=== PATIENT | male | born 1990 | race Caucasian/White ===

== ENCOUNTER 2021-02-20 22:03 | Emergency (ER) | payer MEDICAID ==
[~2021-02-20] VITALS: Ht 167.6 cm; Wt 85.0 kg
[2021-02-20 22:45] VITALS: BP 151/109
[2021-02-21] MEDS ORDERED: CYCL-1 PO (00:24)
[2021-02-21] MEDS ORDERED: NICO-630 TOP (00:24)
[2021-02-21] MEDS ORDERED: cyclobenzaprine 10mg tablet PO ONE (00:25)
[2021-02-21] MEDS ORDERED: nicotine 14mg patch - 24hr TD ONE (00:25)
== END 2021-02-21 00:53 | disposition home or self-care (01) ==
LOC: ER 22:06
DX: G47.00 Insomnia, unspecified (principal); F17.200 Nicotine dependence, unspecified, uncomplicated; F15.10 Other stimulant abuse, uncomplicated
CPT/HCPCS: 99282

== ENCOUNTER 2021-02-21 21:00 | Emergency (ER) | payer MEDICAID ==
[~2021-02-21 21:00] MED LIST: CYCL-1 PO; NICO-630 TOP
--- NOTE | 2021-02-21 21:49 | NUR ---
PT FOUND SLEEPING IN LOBBY, PT HAS NO PHYSICAL COMPLAINTS JUST STATES HE HAS NOWHERE TO GO. PT OFFERED TRANSPORTATION TO [facility], HE ACCEPTED. PT DESIRES TO NOT CHECK IN FOR CARE AT THIS TIME.
== END 2021-02-21 21:51 | disposition left against medical advice (07) ==
LOC: ER 21:01
DX: Z00.8 Encounter for other general examination (principal); Z53.21 Procedure and treatment not carried out due to patient leaving prior to being seen by health care provider

== ENCOUNTER 2021-02-23 08:43 | Emergency (ER) | payer MEDICAID ==
[~2021-02-23] VITALS: Ht 170.2 cm; Wt 75.9 kg
[2021-02-23 09:07] VITALS: BP 156/82
[2021-02-23 09:07] LABS: BASOPHILS # (AUTO) 0.1 X10'3 (0-0.2); BASOPHILS % (AUTO) 0.7 % (0-1); EOSINOPHILS # (AUTO) 0.1 X10'3 (0-0.9); EOSINOPHILS % (AUTO) 1.2 % (0-6); HEMATOCRIT 45.2 % (42.0-52.0); HEMOGLOBIN 15.7 g/dl (14.0-17.9); LYMPHOCYTES # (AUTO) 1.4 X10'3 (1.1-4.8); MEAN CORPUSCULAR HEMOGLOBIN 30.9 PG (27.0-31.0); MEAN CORPUSCULAR HGB CONC 34.6 g/dL (33.0-36.5); MEAN CORPUSCULAR VOLUME 89.3 FL (78-98); MEAN PLATELET VOLUME 8.4 FL (7.4-10.4); MONOCYTES # (AUTO) 0.7 X10'3 (0-0.9); MONOCYTES % (AUTO) 9.3 % (2-12); NEUTROPHILS # (AUTO) 5.7 X10'3 (1.8-7.7); NEUTROPHILS % (AUTO) 71.8 % (42-75); PLATELET COUNT 264 X10'3 (140-440); RED BLOOD COUNT 5.06 X10'6 (4.70-6.10)
[2021-02-23 09:42] LABS: ALANINE AMINOTRANSFERASE 61 U/L (12-78); ALBUMIN 3.7 G/DL (3.4-5.0); ALBUMIN/GLOBULIN RATIO 1.1 (1.1-1.5); ALKALINE PHOSPHATASE 79 IU/L (46-116); ANION GAP 11 (8-16); ASPARTATE AMINO TRANSFERASE 25 U/L (10-37); BILIRUBIN,TOTAL 0.8 MG/DL (0.1-1.0); BLOOD UREA NITROGEN 19 MG/DL (7-18); BUN/CREATININE RATIO 17.1 (5.4-32.0); CALCIUM 8.2 MG/DL (8.5-10.1); CHLORIDE 105 MMOL/L (99-107); CREATININE 1.11 MG/DL (0.60-1.10); GLUCOSE 105 MG/DL (70-104); POTASSIUM 4.4 MMOL/L (3.5-5.1); SODIUM 142 MMOL/L (135-145); TOTAL CARBON DIOXIDE 26.5 MMOL/L (24-32); TOTAL PROTEIN 7.2 G/DL (6.4-8.2); eGFR 79 ML/MIN
[2021-02-23 09:52] LABS: ETHANOL < 0.010 GM/DL (0.0-0.010)
[2021-02-23] MEDS ORDERED: NO HOME MEDS (19:26)
== END 2021-02-23 13:49 | disposition left against medical advice (07) ==
LOC: ER 08:44
DX: R44.0 Auditory hallucinations (principal); Z53.21 Procedure and treatment not carried out due to patient leaving prior to being seen by health care provider
CPT/HCPCS: 36415; 80053; 80320; 84443; 85025

== ENCOUNTER 2021-02-23 14:18 | Emergency (ER) | payer MEDICAID ==
[~2021-02-23] VITALS: Ht 167.6 cm; Wt 80.9 kg
[2021-02-23 16:32] LABS: BASOPHILS % (AUTO) 0.4 % (0-1); EOSINOPHILS # (AUTO) 0.1 X10'3 (0-0.9); EOSINOPHILS % (AUTO) 0.5 % (0-6); HEMATOCRIT 44.8 % (42.0-52.0); LYMPHOCYTES # (AUTO) 1.2 X10'3 (1.1-4.8); LYMPHOCYTES % (AUTO) 12.6 % (21-51); MEAN CORPUSCULAR HEMOGLOBIN 30.2 PG (27.0-31.0); MEAN CORPUSCULAR HGB CONC 33.5 g/dL (33.0-36.5); MEAN CORPUSCULAR VOLUME 90.2 FL (78-98); MEAN PLATELET VOLUME 8.5 FL (7.4-10.4); MONOCYTES # (AUTO) 0.7 X10'3 (0-0.9); MONOCYTES % (AUTO) 7.4 % (2-12); NEUTROPHILS # (AUTO) 7.7 X10'3 (1.8-7.7); NEUTROPHILS % (AUTO) 79.1 % (42-75); PLATELET COUNT 282 X10'3 (140-440); RED BLOOD COUNT 4.96 X10'6 (4.70-6.10); RED CELL DISTRIBUTION WIDTH 12.8 % (11.5-14.5); WHITE BLOOD COUNT 9.8 X10'3 (4.5-11.0)
[2021-02-23 16:44] LABS: ALANINE AMINOTRANSFERASE 61 U/L (12-78); ALBUMIN 3.9 G/DL (3.4-5.0); ALBUMIN/GLOBULIN RATIO 1.1 (1.1-1.5); ALKALINE PHOSPHATASE 83 IU/L (46-116); ANION GAP 7 (8-16); ASPARTATE AMINO TRANSFERASE 25 U/L (10-37); BILIRUBIN,TOTAL 0.5 MG/DL (0.1-1.0); BLOOD UREA NITROGEN 19 MG/DL (7-18); CHLORIDE 104 MMOL/L (99-107); GLUCOSE 121 MG/DL (70-104); POTASSIUM 3.9 MMOL/L (3.5-5.1); SODIUM 142 MMOL/L (135-145); TOTAL CARBON DIOXIDE 31.2 MMOL/L (24-32); TOTAL PROTEIN 7.4 G/DL (6.4-8.2); eGFR 89 ML/MIN
[2021-02-23 16:57] LABS: ETHANOL < 0.010 GM/DL (0.0-0.010)
--- NOTE | 2021-02-23 17:01 | NUR ---
Patient states he was living with his father here in [place]. Father then told patient he needs to get his addiction (Crystal Meth) undercontrol and patient has been hearing voices. Patient was at [facility] but was thrown out because he was hearing voices. Patient stated he was on Latuda for a while and that helped curb the voices. He would like to get back on the medication. Patient does not endorse suicidal ideation at this time. Patient is calm and in no distress. Continue to monitor.
[2021-02-23 17:55] LABS: CLARITY,URINE CLEAR (Clear); COLOR,URINE YELLOW (Yellow); GLUCOSE, URINE NEGATIVE (Neg); KETONES,URINE NEGATIVE (Neg); LEUKOCYTE ESTERASE ,URINE NEGATIVE (Neg); NITRITES, URINE NEGATIVE (Neg); OCCULT BLOOD,URINE NEGATIVE (Neg); PROTEIN,URINE NEGATIVE (Neg); UROBILINOGEN,URINE 0.2 E.U/dL (0.2-1.0)
[2021-02-23 17:58] LABS: UA COLLECTION TYPE CLN CATCH MIDSTREAM
[2021-02-23 18:06] LABS: URINE AMPHETAMINE SCREEN NEGATIVE (Neg); URINE BARBITUATE SCREEN NEGATIVE (Neg); URINE BENZODIAZEPINES SCREEN NEGATIVE (Neg); URINE CANNABINOID SCREEN NEGATIVE (Neg); URINE COCAINE SCREEN NEGATIVE (Neg); URINE METHADONE SCREEN NEGATIVE (Neg); URINE OPIATE SCREEN NEGATIVE (Neg); URINE PHENCYCLIDINE SCREEN NEGATIVE (Neg)
[2021-02-23] MEDS ORDERED: NO HOME MEDS (19:26)
--- NOTE | 2021-02-23 20:12 | NUR ---
pt evaluated by [facility], will be placed on [id number]. pt is polite and cooperative.
--- NOTE | 2021-02-24 00:54 | NUR ---
pt is restless, tossing and turning, no needs at this time.
--- NOTE | 2021-02-24 02:11 | NUR ---
pt has been accepted at [facility], they will arrange transport in the am.
--- NOTE | 2021-02-24 02:40 | NUR ---
pt is sleeping, rr unlabored. no s/s of distress noted.
--- NOTE | 2021-02-24 05:26 | NUR ---
pt appears to be asleep
[2021-02-24 05:55] VITALS: BP 126/69
--- NOTE | 2021-02-24 06:25 | NUR ---
Patient sleeping supine. No distress observed. Continue to monitor.
--- NOTE | 2021-02-24 08:21 | NUR ---
Patient given his breakfast tray. Patient opened his eyes but went back to sleep. No distress observed. Continue to monitor.
--- NOTE | 2021-02-24 09:05 | NUR ---
Registration with patient. No distress observed. Continue to monitor.
--- NOTE | 2021-02-24 09:16 | NUR ---
Patient eating his breakfast. No distress observed. Continue to monitor.
== END 2021-02-24 09:46 ==
LOC: ER 14:19
DX: R45.851 Suicidal ideations (principal); Z20.822 Contact with and (suspected) exposure to COVID-19; R44.0 Auditory hallucinations; R44.1 Visual hallucinations; E05.90 Thyrotoxicosis, unspecified without thyrotoxic crisis or storm; F15.90 Other stimulant use, unspecified, uncomplicated; Z72.89 Other problems related to lifestyle
CPT/HCPCS: 36415; 80053; 80305; 80320; 81003; 84443; 85025; 87635; 99285; C9803